=== PATIENT | male | born 1945 | race Caucasian/White ===

== ENCOUNTER 2019-03-12 17:53 | Inpatient (IN) | payer OTHER ==
[~2019-03-12] VITALS: Ht 177.8 cm; Wt 109.0 kg
[2019-03-12] MEDS ORDERED: hydrALAzine 20 MG/ML, 1ML IVPush PRN (20:00)
[2019-03-12] MEDS ORDERED: ONDANSETRON 2MG/ML, 2ML IVPush PRN (20:00)
[2019-03-12] MEDS ORDERED: ONDANSETRON ODT 4 MG PO PRN (20:00)
[2019-03-12] MEDS ORDERED: POLYETHYLENE GLYCOL 17 GM PACKET PO PRN (20:00)
[2019-03-12] MEDS ORDERED: PROMETHAZINE 25 MG/ML, 1ML IM PRN (20:00)
[2019-03-12] MEDS ORDERED: LABETALOL 5MG/ML, 20ML IVPush PRN (20:00)
[2019-03-12] MEDS ORDERED: morphine SULFATE 10 MG/ML, 1ML IVPush PRN (20:00)
[2019-03-12] MEDS ORDERED: OXYcodone IR 5MG TABLET PO PRN (20:00)
[2019-03-12] MEDS ORDERED: DOCUSATE 100 MG CAPSULE PO PRN (20:00)
[2019-03-12] MEDS ORDERED: BISACODYL 10 MG SUPP PR PRN (20:00)
[2019-03-12] MEDS ORDERED: ACETAMINOPHEN 325 MG TABLET PO PRN (20:00)
[2019-03-12] MEDS ORDERED: PLEASE ENTER HEIGHT AND WEIGHT MC SCH (20:30)
[2019-03-12] MEDS ORDERED: PLEASE ENTER ALLERGIES MC SCH (20:30)
[2019-03-12] MEDS ORDERED: LEVO175T5 PO (20:48)
[2019-03-12] MEDS ORDERED: METF500T17 PO (20:48)
[2019-03-12] MEDS ORDERED: METO200T47 PO (20:48)
[2019-03-12] MEDS ORDERED: ASPI-496 PO (20:48)
[2019-03-12] MEDS ORDERED: WARF-36 PO (20:48)
[2019-03-12] MEDS ORDERED: GABA600T7 PO (20:48)
[2019-03-12] MEDS ORDERED: ATOR-2 PO (20:48)
[2019-03-12] MEDS ORDERED: WARF7.5T46 PO (20:48)
[2019-03-12] MEDS ORDERED: LOSA1TAB19 PO (20:48)
[2019-03-12] MEDS ORDERED: MAGN400T26 PO (20:48)
[2019-03-12] MEDS ORDERED: CHOL10003 PO (20:48)
[2019-03-12] MEDS ORDERED: SITA100T PO (20:48)
[2019-03-12] MEDS ORDERED: GABAPENTIN 300 MG CAPSULE PO SCH (21:00)
[2019-03-12] MEDS ORDERED: ATORVASTATIN 40 MG TABLET ONE (21:13)
[2019-03-12] MEDS ORDERED: FUROSEMIDE 20 MG/2 ML ONE (21:13)
[2019-03-12] MEDS ORDERED: GABAPENTIN 300 MG CAPSULE ONE ×2 (21:13→22:25)
[2019-03-12 21:16] VITALS: BP 130/89
[2019-03-12] MEDS: ATORVASTATIN 40 MG TABLET PO SCH (21:22)
[2019-03-12] MEDS: FUROSEMIDE 20 MG/2 ML IV SCH (21:23)
[2019-03-12 21:59] LABS: HEMOGLOBIN A1C 6.8 % (4.2-6.3); INTERNATIONAL NORMALIZED RATIO 2.04 (0.93-1.1); PROTHROMBIN TIME 20.8 Seconds (9.6-11.5)
[2019-03-12 22:00] LABS: FREE T4 (FREE THYROXINE) 1.14 ng/dL (0.76-1.46)
[2019-03-12] MEDS ORDERED: WARFARIN 5 MG TABLET PO-COUM ONE (22:11)
[2019-03-12] MEDS: INSULIN LISPRO 100 UNITS/ML, PEN SQ-INSULIN SCH (23:48)
[2019-03-13 02:15] VITALS: BP 117/72
[2019-03-13 05:42] LABS: BASOPHILS # (AUTO) 0.04 x10^3/uL (0-0.1); BASOPHILS % (AUTO) 0 % (0-1); EOSINOPHILS # (AUTO) 0.16 x10^3/uL (0-0.4); EOSINOPHILS % (AUTO) 2 % (1-7); LYMPHOCYTES % (AUTO) 16 % (22-44); MD NO; MEAN CORPUSCULAR HEMOGLOBIN 30.8 pg (27.5-34.5); MEAN CORPUSCULAR VOLUME 96.3 fL (81-97); MEAN PLATELET VOLUME 9.1 fL (7.4-10.4); MONOCYTES % (AUTO) 8 % (2-9); NEUTROPHILS # (AUTO) 6.83 x10^3/uL (1.8-6.8); NEUTROPHILS % (AUTO) 74 % (42-75); PLATELET COUNT 166 x10^3/uL (130-400); RED BLOOD COUNT 4.96 x10^6/uL (4.38-5.82); RED CELL DISTRIBUTION WIDTH 16.4 % (9.4-14.8)
[2019-03-13] MEDS: ASPIRIN 81 MG TABLET EC PO SCH (05:46)
[2019-03-13 05:47] LABS: INTERNATIONAL NORMALIZED RATIO 2.02 (0.93-1.1); PROTHROMBIN TIME 20.6 Seconds (9.6-11.5)
[2019-03-13] MEDS: METOPROLOL SUCCINATE 25 MG TAB.ER.24H PO SCH (05:47)
[2019-03-13] MEDS: LEVOTHYROXINE 175 MCG TABLET PO SCH (05:47)
[2019-03-13 05:57] LABS: CHLORIDE 104 mmol/L (98-107)
[2019-03-13 06:15] LABS: ALANINE AMINOTRANSFERASE 19 U/L (12-78); ALBUMIN 3.6 g/dL (3.4-5.0); ALKALINE PHOSPHATASE 73 U/L (45-117); ANION GAP 8 mmol/L (5-15); BILIRUBIN,TOTAL 1.3 mg/dL (0.2-1.0); CHOL/HDL RATIO 4.3; CHOLESTEROL, TOTAL 111 mg/dL (140-239); CREATININE 1.23 mg/dL (0.7-1.3); HDL CHOL % 23 % (26-37); HDL CHOLESTEROL (DIRECT) 26 mg/dL (40-60); LDL CHOLESTEROL,CALCULATED 39 mg/dL (54-169); LDL/HDL RATIO 1.5 (0.5-3.0); TOTAL PROTEIN 6.7 g/dL (6.4-8.2); TRIGLYCERIDES 230 mg/dL (50-200); VLDL CHOLESTEROL 46 mg/dL (0-25)
[2019-03-13] MEDS: INSULIN LISPRO 100 UNITS/ML, PEN SQ-INSULIN SCH ×4 (07:00→20:49)
[2019-03-13 07:45] VITALS: BP 105/69
[2019-03-13] MEDS: GABAPENTIN 300 MG CAPSULE PO SCH ×2 (07:59→20:49)
[2019-03-13] MEDS: FUROSEMIDE 20 MG/2 ML IV SCH ×2 (07:59→17:45)
[2019-03-13] MEDS: LOSARTAN 25MG TABLET PO SCH (07:59)
[2019-03-13 13:55] VITALS: BP 101/64
[2019-03-13 17:43] VITALS: BP 110/72
[2019-03-13] MEDS ORDERED: WARFARIN 3 MG TABLET PO-COUM ONE (18:00)
[2019-03-13 19:18] VITALS: BP 96/60
[2019-03-13] MEDS: ATORVASTATIN 40 MG TABLET PO SCH (20:49)
[2019-03-14 01:12] VITALS: BP 96/64
[2019-03-14 05:19] VITALS: BP 97/58
[2019-03-14] MEDS: LEVOTHYROXINE 175 MCG TABLET PO SCH (05:22)
[2019-03-14] MEDS: ASPIRIN 81 MG TABLET EC PO SCH (05:22)
[2019-03-14 05:33] LABS: BASOPHILS # (AUTO) 0.03 x10^3/uL (0-0.1); BASOPHILS % (AUTO) 0 % (0-1); EOSINOPHILS # (AUTO) 0.18 x10^3/uL (0-0.4); EOSINOPHILS % (AUTO) 2 % (1-7); LYMPHOCYTES # (AUTO) 1.44 x10^3/uL (1-3.4); LYMPHOCYTES % (AUTO) 16 % (22-44); MD NO; MEAN CORPUSCULAR HGB CONC 32.2 g/dL (33.2-36.2); MEAN CORPUSCULAR VOLUME 96.4 fL (81-97); MEAN PLATELET VOLUME 8.5 fL (7.4-10.4); MONOCYTES # (AUTO) 0.65 x10^3/uL (0.2-0.8); MONOCYTES % (AUTO) 7 % (2-9); NEUTROPHILS # (AUTO) 6.49 x10^3/uL (1.8-6.8); NEUTROPHILS % (AUTO) 74 % (42-75); PLATELET COUNT 160 x10^3/uL (130-400); RED BLOOD COUNT 5.01 x10^6/uL (4.38-5.82); RED CELL DISTRIBUTION WIDTH 16.1 % (9.4-14.8)
[2019-03-14 05:41] LABS: INTERNATIONAL NORMALIZED RATIO 2.42 (0.93-1.1); PROTHROMBIN TIME 24.6 Seconds (9.6-11.5)
[2019-03-14 05:51] LABS: ANION GAP 9 mmol/L (5-15); CHLORIDE 103 mmol/L (98-107); CREATININE 1.05 mg/dL (0.7-1.3)
[2019-03-14] MEDS: INSULIN LISPRO 100 UNITS/ML, PEN SQ-INSULIN SCH ×4 (07:00→21:15)
[2019-03-14 08:10] VITALS: BP 113/70
[2019-03-14] MEDS: METOPROLOL SUCCINATE 25 MG TAB.ER.24H PO SCH (08:12)
[2019-03-14] MEDS: GABAPENTIN 300 MG CAPSULE PO SCH ×2 (08:12→21:14)
[2019-03-14] MEDS: FUROSEMIDE 20 MG/2 ML IV SCH (08:13)
[2019-03-14] MEDS: LOSARTAN 25MG TABLET PO SCH (08:13)
[2019-03-14 13:15] VITALS: BP 101/70
[2019-03-14] MEDS ORDERED: WARFARIN 2 MG TABLET PO-COUM ONE (18:00)
[2019-03-14] MEDS: FUROSEMIDE 40 MG TABLET PO SCH (18:30)
[2019-03-14 19:19] VITALS: BP 99/64
[2019-03-14] MEDS: ATORVASTATIN 40 MG TABLET PO SCH (21:14)
[2019-03-15] VITALS (7 sets, daily range): BP systolic 90–107; BP diastolic 46–70
[2019-03-15 05:27] LABS: INTERNATIONAL NORMALIZED RATIO 2.29 (0.93-1.1); PROTHROMBIN TIME 23.3 Seconds (9.6-11.5)
[2019-03-15 05:30] LABS: ANION GAP 7 mmol/L (5-15); CALCIUM 9.7 mg/dL (8.5-10.1); CHLORIDE 99 mmol/L (98-107); CREATININE 1.11 mg/dL (0.7-1.3)
[2019-03-15] MEDS: ASPIRIN 81 MG TABLET EC PO SCH (05:33)
[2019-03-15] MEDS: LEVOTHYROXINE 175 MCG TABLET PO SCH (05:33)
[2019-03-15] MEDS: METOPROLOL SUCCINATE 25 MG TAB.ER.24H PO SCH (05:33)
[2019-03-15] MEDS: INSULIN LISPRO 100 UNITS/ML, PEN SQ-INSULIN SCH ×4 (08:01→20:01)
[2019-03-15] MEDS: GABAPENTIN 300 MG CAPSULE PO SCH ×2 (08:03→20:02)
[2019-03-15] MEDS: LOSARTAN 25MG TABLET PO SCH (08:03)
[2019-03-15] MEDS: FUROSEMIDE 40 MG TABLET PO SCH (08:03)
[2019-03-15] MEDS ORDERED: SODIUM CHLORIDE 0.9%, 250ML IVBOLUS ONE (14:00)
[2019-03-15] MEDS ORDERED: FUROSEMIDE 20 MG TABLET PO SCH (17:00)
[2019-03-15] MEDS ORDERED: WARFARIN 7.5 MG TABLET PO-COUM ONE (18:00)
[2019-03-15] MEDS: ATORVASTATIN 40 MG TABLET PO SCH (20:02)
[2019-03-16 01:47] VITALS: BP 104/76
[2019-03-16 05:26] LABS: BASOPHILS # (AUTO) 0.03 x10^3/uL (0-0.1); BASOPHILS % (AUTO) 0 % (0-1); EOSINOPHILS # (AUTO) 0.14 x10^3/uL (0-0.4); EOSINOPHILS % (AUTO) 2 % (1-7); LYMPHOCYTES # (AUTO) 1.61 x10^3/uL (1-3.4); LYMPHOCYTES % (AUTO) 19 % (22-44); MD NO; MEAN CORPUSCULAR HEMOGLOBIN 31.7 pg (27.5-34.5); MEAN CORPUSCULAR HGB CONC 32.9 g/dL (33.2-36.2); MEAN CORPUSCULAR VOLUME 96.4 fL (81-97); MEAN PLATELET VOLUME 8.6 fL (7.4-10.4); MONOCYTES # (AUTO) 0.72 x10^3/uL (0.2-0.8); MONOCYTES % (AUTO) 9 % (2-9); NEUTROPHILS # (AUTO) 5.96 x10^3/uL (1.8-6.8); NEUTROPHILS % (AUTO) 71 % (42-75); PLATELET COUNT 170 x10^3/uL (130-400); RED BLOOD COUNT 5.19 x10^6/uL (4.38-5.82); RED CELL DISTRIBUTION WIDTH 16.1 % (9.4-14.8)
[2019-03-16] MEDS ORDERED: LEVOTHYROXINE 75 MCG TABLET ONE (05:30)
[2019-03-16] MEDS ORDERED: LEVOTHYROXINE 100 MCG TABLET ONE (05:30)
[2019-03-16 05:40] LABS: INTERNATIONAL NORMALIZED RATIO 2.1 (0.93-1.1); PROTHROMBIN TIME 21.4 Seconds (9.6-11.5)
[2019-03-16] MEDS: LEVOTHYROXINE 175 MCG TABLET PO SCH (05:46)
[2019-03-16] MEDS: ASPIRIN 81 MG TABLET EC PO SCH (05:46)
[2019-03-16 05:47] LABS: CHLORIDE 103 mmol/L (98-107)
[2019-03-16 05:56] LABS: ANION GAP 4 mmol/L (5-15); CALCIUM 9.3 mg/dL (8.5-10.1); CREATININE 1.05 mg/dL (0.7-1.3)
[2019-03-16] MEDS ORDERED: METOPROLOL SUCCINATE 25 MG TAB.ER.24H PO SCH ×2 (06:00)
[2019-03-16] MEDS: INSULIN LISPRO 100 UNITS/ML, PEN SQ-INSULIN SCH ×4 (07:00→20:55)
[2019-03-16 07:40] VITALS: BP 105/74
[2019-03-16] MEDS: FUROSEMIDE 20 MG TABLET PO SCH (08:44)
[2019-03-16] MEDS: GABAPENTIN 300 MG CAPSULE PO SCH ×2 (08:49→20:55)
[2019-03-16] MEDS ORDERED: LOSARTAN 25MG TABLET PO SCH ×2 (09:00)
[2019-03-16] MEDS ORDERED: FUROSEMIDE 20 MG TABLET PO SCH (09:00)
[2019-03-16] MEDS ORDERED: SPIRONOLACTONE 25 MG TABLET PO SCH ×2 (09:00)
[2019-03-16 13:18] VITALS: BP 98/62
[2019-03-16] MEDS ORDERED: OMNIPAQUE 350 MG/ML, 100ML BOTTLE ONE (16:39)
[2019-03-16] MEDS ORDERED: WARFARIN 3 MG TABLET PO-COUM ONE (18:00)
[2019-03-16 19:05] VITALS: BP 103/69
[2019-03-16] MEDS: ATORVASTATIN 40 MG TABLET PO SCH (20:55)
[2019-03-17 02:03] VITALS: BP 106/62
[2019-03-17 05:10] LABS: INTERNATIONAL NORMALIZED RATIO 2.1 (0.93-1.1); PROTHROMBIN TIME 21.4 Seconds (9.6-11.5)
[2019-03-17 05:12] LABS: ANION GAP 6 mmol/L (5-15); CALCIUM 9.2 mg/dL (8.5-10.1); CHLORIDE 104 mmol/L (98-107); CREATININE 1.08 mg/dL (0.7-1.3)
[2019-03-17 05:35] VITALS: BP 120/68
[2019-03-17] MEDS: ASPIRIN 81 MG TABLET EC PO SCH (05:36)
[2019-03-17] MEDS: LEVOTHYROXINE 175 MCG TABLET PO SCH (05:36)
[2019-03-17] MEDS ORDERED: METOPROLOL SUCCINATE 25 MG TAB.ER.24H PO SCH (06:00)
[2019-03-17 07:25] VITALS: BP 115/73
[2019-03-17] MEDS: INSULIN LISPRO 100 UNITS/ML, PEN SQ-INSULIN SCH ×4 (07:53→21:01)
[2019-03-17] MEDS: FUROSEMIDE 20 MG TABLET PO SCH (08:22)
[2019-03-17] MEDS: GABAPENTIN 300 MG CAPSULE PO SCH ×2 (08:22→21:04)
[2019-03-17] MEDS ORDERED: REGADENOSON 0.4 MG/5 ML SYRINGE ONE (09:35)
[2019-03-17 12:45] VITALS: BP 103/69
[2019-03-17] MEDS ORDERED: WARFARIN 3 MG TABLET PO-COUM ONE (18:00)
[2019-03-17 20:43] VITALS: BP 112/72
[2019-03-17] MEDS: ATORVASTATIN 40 MG TABLET PO SCH (21:04)
[2019-03-18 02:54] VITALS: BP 110/73
[2019-03-18 05:55] VITALS: BP 110/75
[2019-03-18] MEDS ORDERED: METOPROLOL SUCCINATE 50 MG TAB.ER.24H PO SCH (06:00)
[2019-03-18] MEDS: ASPIRIN 81 MG TABLET EC PO SCH (06:01)
[2019-03-18] MEDS: LEVOTHYROXINE 175 MCG TABLET PO SCH (06:02)
[2019-03-18 06:16] LABS: INTERNATIONAL NORMALIZED RATIO 2.14 (0.93-1.1); PROTHROMBIN TIME 21.8 Seconds (9.6-11.5)
[2019-03-18] MEDS ORDERED: METOPROLOL SUCCINATE 25 MG TAB.ER.24H PO SCH (06:30)
[2019-03-18 08:20] VITALS: BP 118/78
[2019-03-18] MEDS: GABAPENTIN 300 MG CAPSULE PO SCH (09:35)
[2019-03-18] MEDS: INSULIN LISPRO 100 UNITS/ML, PEN SQ-INSULIN SCH ×2 (09:36→12:10)
[2019-03-18 09:37] VITALS: BP 107/74
[2019-03-18] MEDS: FUROSEMIDE 20 MG TABLET PO SCH (10:59)
[2019-03-18] MEDS ORDERED: METO25TA91 PO (11:07)
[2019-03-18] MEDS ORDERED: FURO20TA3 PO (11:07)
[2019-03-18] MEDS ORDERED: LOSA25TA25 PO (11:14)
[2019-03-18] MEDS ORDERED: WARFARIN 3 MG TABLET PO-COUM ONE (18:00)
== END 2019-03-18 13:25 | disposition home or self-care (01) | DRG 291 ==
LOC: 5SO 18:42 → DCLOUNGE 03-18 13:24
PROVIDERS: ADMIT Internal Medicine; ATTEND Internal Medicine
DX: I11.0 Hypertensive heart disease with heart failure (principal); J96.01 Acute respiratory failure with hypoxia; D68.69 Other thrombophilia; I50.43 Acute on chronic combined systolic (congestive) and diastolic (congestive) heart failure; E03.9 Hypothyroidism, unspecified; E78.5 Hyperlipidemia, unspecified; I25.10 Atherosclerotic heart disease of native coronary artery without angina pectoris; I25.5 Ischemic cardiomyopathy; I27.20 Pulmonary hypertension, unspecified; I95.9 Hypotension, unspecified; I44.7 Left bundle-branch block, unspecified; E11.65 Type 2 diabetes mellitus with hyperglycemia; I35.1 Nonrheumatic aortic (valve) insufficiency; I48.2 Chronic atrial fibrillation; Z79.01 Long term (current) use of anticoagulants; Z79.82 Long term (current) use of aspirin; Z95.1 Presence of aortocoronary bypass graft; Z95.2 Presence of prosthetic heart valve
CPT/HCPCS: 36415; 71275; 78452; 80048; 80053; 80061; 82962; 83036; 83735; 84100; 84439; 84443; 85025; 85610; 93017; G0378; J2785; Q9967; A9502; C9898; J1815; J1940; J7050